=== PATIENT | female | born 1940 | race Caucasian/White ===

== ENCOUNTER 2016-06-03 05:40 | Inpatient (IN) | payer MEDICARE ==
[2016-06-03] VITALS (11 sets, daily range): BP systolic 125–164; BP diastolic 58–83; PULSE 72–106; RESP 13–20; O2SAT 89–96
[~2016-06-03] VITALS: Ht 167.6 cm; Wt 103.0 kg
[2016-06-03] MEDS: Lactated Ringer's 1,000 ML IV SCH ×3 (05:00→08:59)
[~2016-06-03 05:40] MED LIST: ACET-171 PO; ACET1TAB12 PO; Bacitracin 50,000 unit Inj IRRIGATION SCH; CHOL100045 PO; DIAZ5TAB PO; DOCU250C2 PO; FLUO60TA PO; HYDR-3740 PO; HYDR25CA PO; IBUP200C PO; LISI2.5T PO; LORA0.5T PO; LOVA40TA PO; LYSI1000 PO; MELA1TAB16 PO; METF500T4 PO; MULT-1018 PO; TRAZ-115 PO; Thrombin Powder 5,000 Unit TOPICAL SCH
[2016-06-03] MEDS ORDERED: Clindamycin Inj 600 MG in IV Premix 1 EACH IV ONE (06:00)
--- NOTE | 2016-06-03 07:18 | PCM.HPANE ---
Patient Data Date of Service: Jun 03, 2016 Surgeon Admitting Provider: Attending Provider:Darrell Strickland MD Primary Care Physician:Luh Olivares MD Other Provider:Keegan Burgos Anesthesia Reason for Visit Cervical Spondylosis With Myelopathy And Radiculop Ht/WT & BMI Height (Feet): 5 Height (Inches): 6.00 Weight (Kilograms): 103.0 Body Mass Index 36.00 Allergies Coded Allergies: Penicillins (Verified Allergy, Severe, INJECTIONS ONLY, RASH AND ITCHING, 05/29/16) Uncoded Allergies: VICODIN/PERCOCET/NARCOTICS (Adverse Reaction, Severe, ITCHING W/ LARGER DOSES, 05/29/16) Past Anesthesia History Anesthesia History: Positive for:: Difficult Intubation, Denies:: Anesthesia Reactions, Fam Anesthesia Reaction, Fam Malignant Hypertherm, Malignant Hyperthermia Diabetes History Hx Diabetes?: Yes Type of Diabetes: Type II Glycemic Control: Oral Medication Current Bedside Blood Glucose: 117 MRSA MRSA: No Medications Hypertension Medication: Yes (LISINOPRIL) Home Meds Incl Beta Ketan: No Reported Medications Cholecalciferol (Vitamin D3) (Vitamin D)1,000 Unit Capsule2,000 Unit PO DAILY # 1 BOTTLE Ref 0 05/29/16 Hydroxyzine Pamoate (Vistaril)25 Mg Rkamnps16-54 Mg PO Q4H PRN For Itching Ref 0 05/29/16 Diazepam (Valium)5 Mg Tablet5-10 Mg PO TID A 30 Days Ref 0 05/29/16 Trazodone 50 Mg Ajrqdz47-944 Mg PO HS Ref 0 05/29/16 Hydrocodone-Acetaminophen 10-325 mg 1 Each Tablet0.5-2 Tablet PO Q4H PRN For Pain Ref 0 05/29/16 Metformin 500 Mg Kdckwm679 Mg PO BID Ref 0 05/29/16 Melatonin/Pyridoxine (Melatonin 5 mg Tablet)1 Each Tablet1 Each PO QPM 05/29/16 Lysine 1,000 Mg Tablet1,000 Mg PO DAILY 05/29/16 Lovastatin 40 Mg Ukepkh49 Mg PO HS #30 TABLET Ref 0 05/29/16 Lorazepam 0.5 Mg Tablet0.5-1 Mg PO BID PRN For Anxiety Ref 0 05/29/16 Lisinopril 2.5 Mg Tablet2.5 Mg PO DAILY 30 Days Ref 0 3/9/17 Ibuprofen 200 Mg Nfwrgtj395 Mg PO QID PRN For Pain Ref 0 05/29/16 Fluoxetine 60 Mg Jpgyuk23 Mg PO DAILY Ref 0 05/29/16 Docusate Sodium 250 Mg Mfdbicq174 Mg PO BID PRN For Constipation Ref 0 05/29/16 Multivitamin (Multi Vitamin Daily)1 Each Tablet1 Each PO DAILY 30 Days Ref 0 05/29/16 Acetaminophen 500 Mg Jsjelq643-6,000 Mg PO Q6H PRN For Fever 05/29/16 Acetaminophen/Codeine 300-30mg (Tylenol/Codeine #3)1 Each Tablet1-2 Tablet PO Q4H PRN Pain Ref 0 05/29/16 Discontinued Reported Medications Lysine Hcl-Expunged Drug, Do Not Renew! (R-Oefijl-Adglvzlv Drug, Do Not Renew!) 500 Mg Lhfhlx074 Mg PO PRN 07/25/11 Mu-Vits-Min Th/Lycopene/Lutein (Centrum Silver Tablet)1 Each Tablet1 Each PO DAILY 07/25/11 Cholecalciferol (D3)-Expunged Drug, Do Not Re (Vitamin D-3-Tmyxpnof Drug, Do Not Renew!)2,000 Unit Capsule2,000 Unit PO DAILY 07/23/11 MELATONIN-Expunged Drug, Do Not Renew! 10 Mg Tab.mphase6 Mg PO HS PRN 07/23/11 IBUPROFEN-Expunged Drug, Do Not Renew! 200 Mg Szhlyj907 Mg PO Q4 INSTRUCTED TO STOP 07/23/11 Lovastatin-Expunged Drug, Do Not Renew! 40 Mg Vkwzlv17 Mg PO HS 07/23/11 Metformin-Expunged Drug, Do Not Renew! 500 Mg Bqxbfi822 Mg PO BID 07/23/11 Zolpidem-Expunged Drug, Do Not Renew! 5 Mg Tab5 Mg PO HS PRN 07/23/11 Trazodone-Expunged Drug, Do Not Renew! 50 Mg Yck00-979 Mg PO HS PRN 07/23/11 History History of ENT Problems?: Yes HEENT History: Positive for:: Difficult Intubation Denture Type: Partial- Upper Hx of Heart Problems?: Yes Cardiovascular History: Positive for:: Hypertension (HYPERLIPIDEMIA) Peripheral Vascular (VARICOSITIES) Denies:: Chest Pain Heart Murmur Thrombophlebitis Other Cardiac History: no SOB Hx of Respiratory Problem?: Yes Respiratory History: Positive for:: Cough (productive clear sputum cough x2wks ) Denies:: Use of C-PAP Machine Other Resp Pertinent History: SaO2 94-95% on RA, sometimes dips to 91% sometimes rises to 97% w/ deep inspiration; former smoker, quit 2008 Hx Neurologic Problems?: Yes Neurological History: Positive for:: Headaches Denies:: CVA Seizures Other Neurological Pertinent: BUE radiculopathy/neuropathy w/ significant weakness LUE - no paresthesias on neck rotation Hx of GI Problems?: Yes Gastrointestinal History: Denies:: Gastroesphageal Reflux Rectal Bleeding (HX COLON POLYPS) Hx of Problems?: No Female Hx: Denies:: Currently Skin History: Denies:: History Skin Disorders? Pressure Ulcers Hx Musculoskeletal Problems?: Yes Musculoskeletal History: Positive for:: Back Injury (C/OF CHRONIC BACK PAIN & SCIATICA) Degenerative Joint Joint Replacement (S/P LT DILMA,RT TKA) Musculoskeletal Trauma (S/P RT KNEE SCOPE) Osteoarthritis (C/OF CHRONIC JOINT PAIN) Hx of Psycho/Social Problems?: Yes Psycho Social History: Positive for:: Anxiety Hx Depression Hx Surgeries?: Yes (RT KNEE SCOPE,RT TKA,LT DILMA) Hx Any Other Health Problems?: Yes Other History: Denies:: Cancer Endocrine Disease Hospitalization Thyroid Disease History Blood Transfusions: Denies:: Blood Transfusions Hx Diabetes: YesBedside Blood Glucose: 117 Hx Alcohol Use: YesHx Substance Use: No Smoking Status: Former Smoker Have You Smoked inLast 12 mo: NoApprox How Many Cigarettes/day: 1 PPD Stop/Bang Treated for Sleep Apnea?: No Do You Have a CPAP Machine?: No S-Snoring: Do You Snore Loudly: No T-Tired: feel tired, fatigued: No O-Obsered: Observed not breath: No P-Blood Pressure: treated: Yes B- Body Mass Index > 35 kg/m2: Yes A- Age over 50: Yes N- Neck Large Circumference: Yes G- Gender Male: No JOSÉ Total Score: 4 JOSÉ Risk Assessment: High Risk, =/>3 Yes JOSÉ Category 2: Yes Risk Assessment Category Category 1A: Patient has history of documented sleep apnea, and HAS NOT received any narcotic, sedative or anesthesia administration during this stay. Category 1B: Patient has history of documented sleep apnea, and HAS received any narcotic , sedative or anesthesia administration during this stay Category 2: Patient has SUSPECTED Obstructive Sleep Apnea, and HAS received any narcotic , sedative or anesthesia administration during this stay. Category 3: Patient has SUSPECTED Obstructive Sleep Apnea and HAS NOT received narcotic, sedative or anesthesia administration during this stay. Category 4: Outpatient in Procedural Areas with known sleep apnea or who screen positive for High Risk via the STOP/BANG questionnaire. Exam Exam Vital Signs Vital Signs Date Time Temp Pulse Resp B/P Pulse Ox O2 Delivery O2 Flow Rate FiO2 06/03/16 06:14 35.8 72 18 125/71 96 Room Air General Appearance: Alert, Oriented X3, Cooperative, No Acute Distress HEENT/AIRWAY: MP 2 (partial upper), Neck Movement (R rot 30, L rot 60, Ext 60, Flex full - no paresthesias w/ neck movement), Mouth Opening (3), Other (tmd3) Lungs: Diminished (bibasilar), Wheezes (mild) Heart: Exam Unremarkable, Regular Rate/Rhythm, Normal S1, Normal S2, No Murmurs /Rubs/Gallops Meds/Labs/Diagnostics Admission Meds Current Medications Lactated Ringer's (Lr) 1,000 ml @ 120 mls/hr Q8H20M IV Last administered on t 05:20; Start 06/03/16 at 05:00; Stop 06/03/16 at 13:19 Bedside Blood Glucose: 117 Diagnositcs CXR 3- Mild cardiomegaly. Mild interstitial prominence suggesting fluid overload. Plan Impression Patient chart reviewed, patient interviewed and anesthestic plan with risks, benefits, and alternatives discussed, and informed consent obtained. NPO Status: 06/02 at 2100 ASA Physical Status: ASA3 Severe Disease Anesthetic Support Modalities: [place] Scope Anesthetic Plan: GA Bene/Risks/Altern/Consents: Yes HP Complete Prior to Induction: Yes Other Portable CXR ordered to evaluate pulmonary symptoms, Duonebs preop to optimize pulmonary function, risk for post-op intubation/mech ventilation addressed Luigi Gil MD Jun 03, 2016 07:18
[2016-06-03] MEDS ORDERED: Albuterol-Ipratropium 3 mL Inhalation Solution ONE (07:19)
[2016-06-03] MEDS ORDERED: Albuterol-Ipratropium 3 mL Inhalation Solution NEB ONE (07:20)
--- NOTE | 2016-06-03 08:21 | DRSVH ---
PROCEDURE: X-RAY CHEST ONE VIEW, PORTABLE ([id number]) INDICATIONS: productive cough, desaturation, r/o pneumonia TECHNIQUE: One view of the chest was acquired. COMPARISON: [facility], , CHEST 2VW, 07/30/2011, 9:56. FINDINGS: Surgical changes and devices: None. Lungs and pleura: No pleural effusions or pneumothorax. There is mild, diffuse interstitial prominen ce. Mediastinum: Mediastinal contours appear normal. Heart size is mildly enlarged. Bones and chest wall: No suspicious bony lesions. Overlying soft tissues appear unremarkable. IMPRESSION: Mild cardiomegaly. Mild interstitial prominence suggesting fluid overload. Dictated by: Lori Hidalgo M.D. on 06/03/2016 at 8:19 Approved by: Lori Hidalgo M.D. on 06/03/2016 at 8:19
[2016-06-03] MEDS ORDERED: Bupivacaine-MPF 0.5% 30 mL Inj INFILTRATE ONE (08:57)
[2016-06-03] MEDS ORDERED: Bacitracin 50,000 unit Inj IRRIGATION ONE (08:58)
[2016-06-03] MEDS ORDERED: Thrombin Powder 5,000 Unit TOPICAL ONE (08:58)
--- NOTE | 2016-06-03 09:19 | DRSVH ---
PROCEDURE: X-RAY CERVICAL SPINE, 1 VIEW INDICATIONS: CERVICAL SPONDYLOSIS WITH MYELOPATHY AND RADICULOP TECHNIQUE: Single lateral view of the cervical spine acquired. COMPARISON: None. FINDINGS: Bones: Radiopaque surgical probe present projected over the anterior disc interspace at the C3-C4 lev el. Soft tissues: Suboptimally visualized. IMPRESSION: Localization of the anterior disc interspace at the C3-C4 level for operative planning. Dictated by: Gregorio CLIFTON Interpreted: Micheline Rodriguez MD on 06/03/2016 at 9:18 Transcribed by: VERO on 06/03/2016 at 9:19 Approved by: Micheline Rodriguez M.D. on 06/03/2016 at 16:34
[2016-06-03] MEDS ORDERED: Lactated Ringer's 1,000 ML IV SCH ×2 (09:45→14:54)
[2016-06-03] MEDS ORDERED: fentaNYL-PF 50 mCg/mL 2 mL Inj IVPUSH PRN (09:45)
[2016-06-03] MEDS ORDERED: HYDROmorphone 1 mg/mL Inj IVPUSH PRN ×2 (09:45→14:55)
[2016-06-03] MEDS ORDERED: Lactated Ringer's 500 ML IV PRN (09:45)
[2016-06-03] MEDS ORDERED: Dexamethasone 4 mg/mL Inj IVPUSH PRN (09:45)
[2016-06-03] MEDS ORDERED: Ondansetron 2 mg/mL 2 mL Inj IVPUSH PRN ×2 (09:45→14:55)
[2016-06-03] MEDS ORDERED: Phenylephrine 10,000 mCg/mL Inj IVPUSH PRN (09:45)
[2016-06-03] MEDS ORDERED: EPHEDrine Sulfate 50 mg/mL Inj IVPUSH PRN (09:45)
[2016-06-03] MEDS ORDERED: MetoCLOpramide 5 mg/mL 2 mL Inj IVPUSH PRN (09:45)
--- NOTE | 2016-06-03 13:49 | OP ---
[address] [address] OPERATIVE REPORT PATIENT: ANDRES MEJIA : 1940 MR#: [id number] ADMIT: 06/03/2016 JOB ID: [id number] DATE OF SURGERY: 06/03/2016 PREOPERATIVE DIAGNOSIS(ES): Cervical spondylosis with myelopathy and radiculopathy. POSTOPERATIVE DIAGNOSIS(ES): Cervical spondylosis with myelopathy and radiculopathy. PROCEDURE: C3-7 anterior cervical diskectomy and fusion using allograft bone and anterior plating C3- C7. SURGEON: Darrell Strickland MD PIPELINE WELDER: RONNA Soares ANESTHESIA: General with Dr. Luigi Gil. ESTIMATED BLOOD LOSS: 50 cc. DATE OF SURGERY: SURGEON: PREOPERATIVE DIAGNOSIS(ES): POSTOPERATIVE DIAGNOSIS(ES): DRAINS: One BERNA. COMPLICATIONS: None. COMPLICATIONS: None. INDICATIONS: This patient presented with symptoms and findings of cervical myelopathy and radiculopathy. She had severe spondylosis, canal stenosis with cord compression at four levels from C3-C7 and neural foraminal narrowing bilaterally, more pronounced on the left side with a left radiculopathy involving the C5-C6 and C7 roots. DESCRIPTION OF PROCEDURE: This patient was taken to the operating room on May 19, 2016, placed under general anesthesia, prepped and draped sterile. The right side of the neck was infiltrated with 0.5% plain Marcaine and an incision was made transversely on the right side of the neck from the midline to the sternocleidomastoid. The incision was carried down sharply through the skin and subcutaneous tissues and hemostasis was achieved with the bipolar electrocautery. The platysma was incised and blunt dissection was used to create a plane to the prevertebral space. The carotid was palpated and mobilized laterally. The esophagus and trachea were mobilized medially with an appendectomy retractor. A Sedona pin was placed into the vertebral body of C3 as a marker along with a bent spinal needle at the C3-4 level. The position of the Sedona pin was confirmed with an intraoperative lateral C-spine film. The deep retractors were initially placed at the C3-4 level and distracted open. Sedona pins were placed into the vertebral bodies of C3 and C4. The patient had a diskectomy and fusion first performed at C3-4, then C4-5, then C5-6, then C6-7. At each level it was necessary to reposition the retractors and to reposition the Sedona pins and the microscope. Each level was done in the same manner. First the annulus was incised with the monopolar. Then, the disk material was removed piecemeal with curette. Then, the high-speed bur was used to remove the anterior and posterior osteophytes and widen the disk space with a high-speed bur. The posterior longitudinal ligament was resected to decompress the central canal using the curette and Kerrison punch. The neural foramen were widened bilaterally to decompress the nerve roots bilaterally at each level. Following the foraminotomies and the decompression of central canal, the disk space was prepared for the fusion using the rasp. The rasping at the C3-4 level required the placement of a 9 mm donor bone graft that tapered to 7 mm. Similarly a 9 x 7 donor bone graft was placed at the C6-7 level. The two middle levels C4-5 and C5-6 used an 8 mm allograft that tapered to 6 mm. Before the placement of the bone graft, the disk space was irrigated with an antibiotic solution and inspected for hemostasis. Hemostasis was achieved with the use of Gelfoam and the Gelfoam was removed. Following the placement of the bone graft at each level, the bone graft was held firmly in position. A plate was then selected to span C3-C7. A Shea plate, a product of [employer], measuring 68 mm was selected. This is a dynamic titanium plate spanning C3-C7 anteriorly. The plate was secured to the vertebral bodies of C3-C4-C5-C6 and C7 with fixed angle self-drilling 12 mm titanium screws. The screws were all locked into position. The spacing bars were all removed from the Shea plate at each disk level. The wound was then irrigated with antibiotic solution. Hemostasis was achieved with the bipolar electrocautery. A BERNA drain was placed at the base of the wound, brought out through a separate stab wound, and hooked up to bulb suction. The platysma was then approximated with interrupted sutures of 0 Vicryl and the skin was closed with 4-0 Vicryl using a subcuticular stitch. Steri-Strips were applied the skin which was dressed with Telfa, gauze and tape and the patient was placed in a hard cervical collar.
[2016-06-03] MEDS ORDERED: Promethazine 12.5 mg/50 mL-NS 12.5 MG in IV Premix 1 EACH IV PRN (14:40)
[2016-06-03] MEDS ORDERED: HYDROcodone-APAP 10-325 mg PO PRN (14:45)
[2016-06-03] MEDS ORDERED: Benzocaine (Hurricaine) 20% Unit-Dose Spray MUC_MEMBRM PRN (14:50)
[2016-06-03] MEDS ORDERED: Glucose 40% Oral Gel 15 Gm Tube PO PRN (14:50)
[2016-06-03] MEDS ORDERED: Codeine-APAP 30-300 mg Tablet PO PRN (14:50)
[2016-06-03] MEDS ORDERED: hydrOXYzine Pamoate 25 mg Capsule PO PRN (14:55)
[2016-06-03] MEDS ORDERED: Polyethylene Glycol (PEG) 17 Gm Powder PO PRN ×3 (14:55)
[2016-06-03] MEDS ORDERED: Magnesium Hydroxide 10 mL Oral Concentration PO PRN ×3 (14:55)
[2016-06-03] MEDS ORDERED: Sodium Biphos-Phos 133 mL Enema RECTAL PRN ×3 (14:55)
[2016-06-03] MEDS ORDERED: Senna-Docusate 8.6-50 mg Tablet PO PRN ×3 (14:55)
[2016-06-03] MEDS ORDERED: Benzocaine-Menthol Lozenge 2/Pkg PO PRN (14:55)
[2016-06-03] MEDS ORDERED: EPHEDrine/NS 5 mg/mL 5 mL Syringe ONE (14:57)
[2016-06-03] MEDS ORDERED: HYDROmorphone 2 mg/mL Inj ONE (14:57)
[2016-06-03] MEDS ORDERED: Rocuronium 10 mg/mL 5 mL Inj ONE ×2 (14:57)
[2016-06-03] MEDS ORDERED: Dexamethasone 4 mg/mL Inj ONE ×2 (14:57)
[2016-06-03] MEDS ORDERED: MetoCLOpramide 5 mg/mL 2 mL Inj ONE (14:57)
[2016-06-03] MEDS ORDERED: Lidocaine PF 1% 30 mL Inj ONE (14:57)
[2016-06-03] MEDS ORDERED: Propofol 10,000 mCg/mL 20 mL Inj ONE ×2 (14:57)
[2016-06-03] MEDS ORDERED: Ondansetron 2 mg/mL 2 mL Inj ONE (14:57)
[2016-06-03] MEDS ORDERED: Succinylcholine Chloride 20 mg/mL 5 mL Inj ONE ×2 (14:57)
[2016-06-03] MEDS ORDERED: fentaNYL-PF 50 mCg/mL 2 mL Inj ONE (14:57)
[2016-06-03] MEDS ORDERED: Clindamycin Inj 900 MG in IV Premix 1 EACH IV SCH (16:00)
--- NOTE | 2016-06-03 16:21 | NUR ---
Evaluation completed. Please go to "Notes" then click on "Assessments and Notes" (bottom left corner of screen). Then select appropriate discipline tab on top of screen.
--- NOTE | 2016-06-03 16:27 | PCM.ANEP1 ---
Post Anesthesia Phase 1 PACU Phase 1 Assessment Date of Service: Jun 03, 2016 Vital Signs Vital Signs Date Time Temp Pulse Resp B/P Pulse Ox O2 Delivery O2 Flow Rate FiO2 06/03/16 14:40 97 18 159/64 94 Nasal Cannula 3 06/03/16 14:22 37.6 103 18 149/66 93 Nasal Cannula 4 06/03/16 14:19 105 13 151/58 92 Nasal Cannula 4 06/03/16 14:10 106 15 158/58 89 Room Air 06/03/16 14:07 104 15 162/66 96 Simple Mask 10 06/03/16 14:00 104 17 161/64 96 Simple Mask 10 06/03/16 13:55 105 17 164/70 96 Simple Mask 10 06/03/16 13:46 37.9 104 17 162/60 95 Simple Mask 10 Anesthetic Administered: GA Level of Alertness: Awake, talking KASPER's with Equal Strength: Yes (baseline) Pain: No Pain Scale Score: 0 Nausea or Vomiting: No Oxygen Delivery: Simple Mask Lungs: Diminished (bibasilar), Wheezes (mild) Summary Hard collar applied by surgical PA in OR prior to extubation. In place for transport to PACU. Luigi Gil MD Jun 03, 2016 16:27
--- NOTE | 2016-06-03 16:29 | PCM.ANEP2 ---
Post Anesthesia Evaluation ASA/CMS Post Anesthesia VS in Patient's Normal Range?: Yes Resp Stable; Airway Patent?: Yes CV Function & Hydration Stable: Yes Mental Status Recovered?: Yes Pain control Satisfactory?: Yes N/V Control Satisfactory?: Yes Luigi Gil MD Jun 03, 2016 16:29
[2016-06-03] MEDS: Insulin LISPRO 300 Unit/3 mL Inj SUBQ SCH ×2 (17:30→21:07)
[2016-06-03] MEDS: Clindamycin Inj 900 MG in IV Premix 1 EACH IV SCH ×2 (18:17→23:35)
--- NOTE | 2016-06-03 19:07 | NUR ---
Post Op Patient received to room 1031 s/p cervical disectomy with fusion. Patient with hard collar on, frances drain and anterior dressing cdi. patient with equal delivery stock clerk but still slightly weak, + radial pulse noted. Patients right thumb is numb. Patient up with physical therapy and now currently sitting in chair. Patient instructed to call for help when ready to go back to bed and agreed she would. Patient has denied pain since arrival to floor.
[2016-06-03] MEDS ORDERED: Senna-Docusate 8.6-50 mg Tablet PO SCH ×2 (20:30)
[2016-06-03] MEDS ORDERED: LOVASTATIN 80 MG PO SCH (21:00)
[2016-06-03] MEDS: Senna-Docusate 8.6-50 mg Tablet PO SCH (21:05)
[2016-06-04 00:04] VITALS: BP 113/66; PULSE 82; RESP 16; O2SAT 94
[2016-06-04 02:51] VITALS: BP 123/64; PULSE 90; RESP 18; O2SAT 92
--- NOTE | 2016-06-04 03:08 | NUR ---
Transfer of Care Report given from KATHARINE Shirley at approximately 0100. VSS. Patient denies any pain. Patient does state that she has right sided numbness on her thumb, first, and second fingers that was not there before the surgery. Patient ambulated to the BR with no stated dizziness. She requested to sit in the chair instead of going back to bed. Patient requested jello. No stated n/v. Neuro check completed. Call light within reach. Care continues.
[2016-06-04] MEDS: Insulin LISPRO 300 Unit/3 mL Inj SUBQ SCH (08:00)
[2016-06-04] MEDS: HYDROcodone-APAP 5-325 mg Tablet PO PRN ×2 (08:15→13:00)
[2016-06-04] MEDS: Senna-Docusate 8.6-50 mg Tablet PO SCH (08:16)
[2016-06-04 10:32] VITALS: BP 126/70; PULSE 82; RESP 16; O2SAT 97
--- NOTE | 2016-06-04 11:24 | DRSVH ---
PROCEDURE: X-RAY CERVICAL SPINE, 1 VIEW INDICATIONS: S/P C3-7 ACDF TECHNIQUE: Single lateral view of the cervical spine acquired. COMPARISON: [facility], , XR CERVICAL SPINE 1VW, 06/03/2016, 8:30. FINDINGS: Bones: Multilevel ACDF from the C3 to the C7 level with hardware and bone grafts in expected position . Soft tissues: Surgical drain present. IMPRESSION: Multilevel ACDF Dictated by: Gregorio Marcum RRA Interpreted: Linnea Chin MD on 06/04/2016 at 11:23 Transcribed by: MOON on 06/04/2016 at 11:23 Approved by: Linnea Chin MD, PhD on 06/04/2016 at 17:03
--- NOTE | 2016-06-04 11:45 | NUR ---
Evaluation completed. Please go to "Notes" then click on "Assessments and Notes" (bottom left corner of screen). Then select appropriate discipline tab on top of screen.
--- NOTE | 2016-06-04 12:53 | PCM.DISURG ---
Surgical Discharge Instruction Date of Service Jun 04, 2016 Dates of Hospitalization Date of Hospital Admission Jun 03, 2016 at 14:56 Providers Admitting Physician: Darrell Strickland MD Primary Care Physician: Luh Olivares MD Attending Physician: Darrell Strickland MD Discharge Diagnosis Discharge Diagnosis Status post C3-7 anterior cervical discectomy and fusion with allograft bone 4 , & anterior cervical plating from C3-7 Post Operative diagnosis Status post C3-7 anterior cervical discectomy and fusion, with allograft bone 4 , & anterior cervical plating from C3-7 Additional Instructions Discharge Instructions Anterior Cervical Discectomy and Fusion What is my recovery like? The hospital stay is usually overnight. After the surgery, you might have a sore throat. This is very common due to the retraction (moving) of the esophagus and trachea. The sore throat usually resolves in 1-2 weeks. Drinking lots of fluids will help improve the symptoms. The cervical collar should be worn at night and for comfort only during the day. On your postoperative follow- up appointments, your Doctor will perform X-rays to see how well everything is healing. What are my restrictions? You should not lift anything heavier than five pounds. Avoid excessive movements of your neck until instructed specifically by your Doctor. Can I Shower? You may shower when you go home. You must remove the outside dressing on the 7th day after surgery, or change dressing as needed if soiled or saturated ( replacing new sterile gauze & water proof dressing) otherwise leave alone. The small pieces of tape (steri-strips) directly on top of the incision may get wet. The steri-strips will fall off on their own. Can I drive? No, you should not drive until specifically given permission from your Doctor in a follow up appointment. Most Patient's can drive in 2-3 weeks if they are not taking narcotic pain medications or muscle relaxers. You may ride in a car, but should avoid trips longer than two hours in duration. When can I return work / sports? Your Doctor will discuss your return to work with you on your first postoperative follow-up appointment. Most patients may return to work within 2 weeks for sedentary jobs. More physically demanding jobs may require 3-6 months of healing before such work can be considered. When should I call the doctor? You should call your Doctor or go to the Emergency Department if you develop chest pain, shortness of breath, a temperature greater than 101.5 F, severe uncontrolled pain or weakness, loss of bowel or bladder function, choking, swelling, lots or drainage, pus discharge or constipation. Instructions Regarding Comfort & Pain Medication Use: During the recovery period , even with the use of pain medication, you may experience pain at the site of surgery. You may also have the same type of pain you had before surgery. Please use your pain scale as a guide for taking your pain medication. When your pain is greater than 4 out of 10, or when your pain reaches your personal tolerable level of pain, take your pain medication as prescribed. Use your pain medication on an 'as needed' basis. This means if your pain level is within your tolerable level of pain you DO NOT need to take the medication. As you get better, you will notice you can increase the time interval between doses and decrease the number of tablets you are taking, gradually taking less and less pain medication. Taking pain medication when it is not necessary (for example when your pain is tolerable or acceptable) can result in dangerous side effects and over- sedation. Signs and symptoms of over-sedation include: drowsiness, excessive sleeping, slow or difficult breathing, slurred speech, impaired thinking, confusion, impaired motor coordination. If you have any of these symptoms stop taking the medication and immediately contact your doctor. IF SYMPTOMS ARE LIFE THREATENING CALL 911. To decrease pain and swelling, frequently apply an ice pack for 20 min intervals with at least one hour off. When to take Acetaminophen for pain? If you don't have liver problems, allergies and/or Tylenol is not in your current pain medication. Take Extra Strength Tylenol 500mg 2 tabs by mouth every 6 hours as needed for pain. DO NOT EXCEED 8 TABS PER DAY. Follow Up Plan Follow Up Plan Follow-up with physician cashier assistant in outpatient neurosurgical clinic in 1 week for wound check. Follow-up Provider (F9): Andrei Garcia PA-C Additional Information Attending Statement All documentation reviewed & orders authorized by Dr. Darrell Strickland M.D. Andrei Garcia PA-C Jun 04, 2016 12:53
--- NOTE | 2016-06-04 13:02 | PCM.DC.SUR ---
Discharge Summary Date of Service: Jun 04, 2016 Date of Hospital Admission: Jun 03, 2016 at 14:56 Date of Operation(s): 06/03/2016 Date of Discharge: 06/04/2016 Diagnosis at Time of Discharge Status post C3-7 anterior cervical discectomy and fusion, with allograft bone 4 , & anterior cervical plating from C3-7 Problems: Operation C3-7 anterior cervical discectomy and fusion, with allograft bone 4, & anterior cervical plating from C3-7 Brief History and Physical: Patient: Diandra Xie Date of : 1940 Visit Type: Pre Op Visit Date: 05/19/2016 10:45 AM Historian: self This 76 year old female presents for Preop C3-7 ACDF, Allograft and & Plating. History of Present Illness: 1. Preop C3-7 ACDF, Allograft, & Plating Diandra Xie is a 76 year old female referred by Primary Care Provider ( PCP) Dr. Luh Olivares M.D. who presents today's date 05/19/2016 for a preoperative type of appointment concerning the decision for surgery involving C3-4, C4-5, C5-6, & C6-7 anterior cervical discectomy and fusion, with allograft bone 4, & anterior cervical plating from C3-7 secondary to a diagnosis of cervical spondylosis with myelopathy & radiculopathy with related complaints of severe, intractable, and debilitating referred neck spasm to the lower back & posterior thighs with radiating pain to the bilateral shoulders & left upper extremity with paresthesias, numbness, dysesthesias, weakness including both hands &'s difficulty with coordination & imbalance. Incidentally the patient also has mild bilateral carpal tunnel syndrome. This patient was last seen by Dr. Darrell Strickland M.D. on 03/27/2016 & found to have cervical spondylosis with myelopathy and radiculopathy. Consequently she was a candidate for surgery a C5-C7 ACDF. The patient canceled surgery because of concerns and anxiety she had about the risks of surgery . She has had a progression of her symptoms of cervical myelopathy and left arm radiculopathy and would like to be reevaluated for surgical intervention. The patient reported that she first developed developed left arm radicular pain and symptoms of cervical myelopathy in February of 2014. She's had a gradual progression of the symptoms. The patient has minimal local neck pain at rest. Head movement, cervical extension can cause severe local neck pain and shooting pain into the left arm to the wrist in a C6 distribution. She reports episodes of diffuse numbness and paresthesias in her left arm and a feeling of diffuse ache and heaviness in the left arm. She also reports a feeling of shakiness or jitteriness in her left arm and hand. These symptoms of myelopathy started in February of 2014 and have progressed gradually. She also reports dropping things from her left hand but has not noticed any impairment of coordination or balance. This patient has limited abduction at the shoulders bilaterally associated with local shoulder pain. Arm movement does not reproduce the left arm C6 radicular pain. An MRI of the cervical spine shows spondylosis with mild anterior cord compression at C5-6 and C6-7. She also has neuroforaminal narrowing bilaterally at C5-6 and C6-7 that is more pronounced on the left side. She also has neuroforaminal narrowing there appears significant on the left side at C4-5. When this patient was previously seen she did not have symptoms of the left C5 distribution. She is now developing weakness of left shoulder abduction and developing radiating pains into the left deltoid region with cervical extension. Over the past year the patient reports that her symptoms of neck pain, radiating pain into the left bicep, diffuse shoulder and arm pain, and has been developing weakness of left shoulder abduction. She admits to loss of coordination, lumbar spasm & impairment of balance. A cervical MRI scan was obtained 02/02/2016 showing a progression of spondylosis at C3-4 C4-5 with severe canal stenosis and evidence of cord compression at both levels. The patient also had severe canal stenosis with more pronounced cord compression at C5-6 and C6-7. She was noted to have a severe degree of neural foraminal narrowing on the left side at C4-5 C5-C6 and C6-7. EMGs/NCV's were obtained showing evidence of cervical radiculopathy involving the left C5- C6 and C7 roots and mild bilateral carpal tunnel syndrome. The recommendations for surgery revised and the plan is to proceed with a C3-7 ACDF with allograft bone and anterior plating C3-C7. The patient is now ready to proceed with surgical intervention and would like to schedule surgery promptly. According to Dr. Darrell Strickland M.D. on reevaluation the patient has a obvious progression of her symptomatic cervical spinal spondylosis with myeloradiculopathy involving significant cervical spinal cord compression at 4 levels C3-7. She also has neuroforaminal narrowing most pronounced on the left side at C4-7. EMG studies correlate with these findings. Consequently neurosurgical cervical decompression, arthrodesis, & instrumented stabilization again recommended as treatment. The patient & Dr. Strickland discussed all the risks and benefits associated with the procedure in detail as well as reasonable expectations with respect to surgical outcomes & patient agreed to proceed with surgery as planned. The patient denies related acute loss of control of bowel or bladder function, saddle paresthesia or anesthesia. The patient has a reported pertinent past medical, surgical, family & social history for Ross DILMA, right TKA, obesity, nbq-jbzkvlb-jgoawjuhy diabetes, ( reported controlled), osteoarthritis, chronic joint pain, depression, anxiety with no other than above known positive history &/or review of all other organ systems. The patient's related complaints have been a serious detriment to their happiness and activities of daily living. Having failed conservative treatment the patient presents today for their decision for surgery appointment involving C3-4, C4-5, C5-6, & C6 7 7 anterior cervical discectomy and fusion, with allograft bone 4, & anterior cervical plating from C3-7 for treatment of cervical spondylosis with myelopathy & radiculopathy; related to severe, intractable, and debilitating referred neck spasm to the lower back & posterior thighs with radiating pain to the bilateral shoulders & left upper extremity with paresthesias, numbness, dysesthesias, weakness including both hands &'s difficulty with coordination & imbalance. The procedure is scheduled to be performed by Dr. Darrell Strickland M.D. on 06/03/2016. PERIOPERATIVE NOTE: The patient reports significant narcotic analgesic related pruritus & in conjunction with her age we will consequently recommend a lower dose narcotic analgesics & antipyretic medication with a standard protocol muscle relaxant & clear instructions which the patient indicated understanding including but not limited to the risks, how to avoid, respond to, & recognize oversedation with regards to respiratory dysfunction & falls. Problem List: Problem Description Obesity Anxiety State, NOS Other and unspecified hyperlipidemia Sciatica Elevated blood pressure Diabetes mellitus without mention of complication, Allergies: Ingredient Reaction Medication Name Comment PENICILLIN G Rash Injected PCN, Able to take Oral PCN. ACETAMINOPHEN Itching Vicodin ACETAMINOPHEN Itching Percocet Reviewed, no changes. Review of Systems System Neg/Pos Details MS Positive Back pain, Muscle weakness, Neck stiffness. GI Negative Abdominal pain, constipation, diarrhea, nausea and vomiting. MS Negative Bone/joint symptoms. Neuro Negative Dizziness, headache and seizures. Negative Dysuria, urge incontinence and urinary incontinence. ENMT Negative Hearing loss. Endocrine Negative Weight gain and weight loss. Respiratory Negative Dyspnea, apnea and wheezing. Psych Negative Anxiety and depression. Integumentary Negative Mrsa and rash. Cardio Negative Chest pain, irregular heartbeat/palpitations, leg swelling and pacemaker. Constitutional Negative Chills and fever. Eyes Negative Double vision and vision loss. Roberto Carlos/Lymph Negative Blood clots. Vital Signs Height Time ft in cm Last Measured Height Position % 10:30 AM 5.0 6.00 167.64 12/31/2015 Weight/BSA/BMI Time lb oz kg Context % BMI kg/m2 BSA m2 10:30 AM 227.40 103.147 dressed with shoes 36.70 Blood Pressure Time BP mm/Hg Position Side Site Method Cuff Size 10:30 AM 124/72 sitting left arm automatic adult large Temperature/Pulse/Respiration Time Temp F Temp C Temp Site Pulse/min Pattern Resp/ min 10:30 AM 97.3 36.3 temporal regular Measured By Time Measured by 10:30 AM Jeri Early MA Physical Exam Exam Findings Details Comments WD/WN, obese female who is AO x 3, cooperative,& appears to be in NAD w/ language & speech that is intact & fluent. There is no evidence of recent or remote memory impairment. The patient's knowledge is appropriate for age & level of education w/ a pleasant affect & euthymic mood. Ambulates w/ no difficulty. NC/AT, PERRL, EOMI, w/o facial droop, hearing grossly intact, nostrils patent, oral cavity and pharynx normal. Neck supple, w/o LAD or thyromegaly. Heart: RRR w/o audible murmurs Lungs: CTAB Abdomen: NT/ND Decreased ROM of C-Spine Left shoulder pain with passive ROM Neg Spurlings, subtle + Hoffmans on the left side, Neg Lhermittes Neg Tinnels, Neg Phalens, no tenderness over cubital tunnel Motor Strength: 4/5 left shoulder abduction & other motor groups 5/5 in UEs & LEs Diminished sensation over the left deltoid that is dense Diminished sensation in a left C6 distribution in the bicep & forearm DTRs, absent left brachial radialis & bicep, 2+ all RUE & no clonus. Assessment/Plan # Detail Type Description 1. Assessment Cervical spondylosis with myelopathy and radiculopathy (M47.12). 2. Assessment Preoperative examination (Z01.818). Patient Plan We including your Attending Surgeon have discussed the risks and benefits associated your scheduled procedure which you have verbally acknowledged understanding including but not limited to the possibility of an outcome that we are unable to predict or was not mentioned. 1. You are scheduled for a C3-4, C4-5, C5-6 & C6 7 7 anterior cervical discectomy and fusion, with allograft bone 4, & anterior cervical plating from C3-[address] Darrell Strickland M.D. at [facility] on 06/03/2016. 2. Check in time is []. Also please ignore instructions below if told otherwise by your preadmission nurse or if you do not take the medications listed below. 3. Nothing to eat after midnight the night before surgery. You may take all of your "approved" medications with small sips of water. Remember to take your a.m. hypertension medication if it is a beta veronica and ends in "olol. Otherwise ask your doctor if you need to hold your a.m. hypertension medication. 4. No aspirin, ibuprofen, Naprosyn, or other NSAIDs starting 7 days prior to surgery. 5. Please stop Warfarin/Coumadin or other blood thinners such as Plavix, Aggrenox, or Xarelto 7 days prior to your surgical procedure and follow specific instructions from your prescribing provider. 6. Please stop Lovenox bridging in the morning one day prior to procedure. 7. Please stop Suboxone/Buprenorphine at least 4 days prior to procedure. 8. Go to the hospital today to get her preoperative testing done. Take the order form to the surgery desk on the second floor of the hospital, [facility] (main entrance next to the emergency entrance). I will notify you if there is any test results that require further workup prior to surgery. 9. Follow the instructions you were given today, use the cleansing cloths the night before as well as the morning of her surgery. 10. If you are prescribed inhalers, CPAP or BiPAP machines you use at home bring along with you to the hospital. 11. ONLY If you take medications for Diabetes: If you have an insulin pump continue lowest (typically night-time) basal rate into the a.m. If you do not have a pump check h your a.m. blood sugar and hold insulin if BS less than 100. If you are taking long-acting, intermediate acting (NPH) or 70/30 preparation : Take half on day of procedure. If you are taking ultra long-acting insulin such as glargine, Lantus either at night or in the a.m. continue as scheduled ( including day of surgery). If you take short acting regular insulin (insulin not delivered via pump) discontinue on day of procedure. 12. Please call if you have any questions before your surgery: [phone]. Today's instructions/counseling include(s) Pre-operative instructions given to the patient and or legal medical office representative(s) orally and in writing. 13. Our office will contact you if there are any test results that require further workup prior to surgery. Provider Plan The patient's history and examination as well as radiological findings were reviewed with Dr. Darrell Strickland M.D. and conveyed the patient in detail. The findings are consistent with cervical spondylosis with myeloradiculopathy and are most likely the cause of the patient's severe, intractable, and debilitating referred neck spasm to the lower back & posterior thighs with radiating pain to the bilateral shoulders & left upper extremity with paresthesias, numbness, dysesthesias, weakness including both hands &'s difficulty with coordination & imbalance. The patient has failed extensive conservative treatment for this condition. The treatment options were discussed with the patient. The options include attempt to live with the condition, reattempt conservative treatment, try a pain management intervention / injection or consider a surgical intervention. We are not extremely optimistic that further conservative treatment, pain management intervention and/or injection will adequately resolve the patient's symptoms of severe, intractable, and debilitating referred neck spasm to the lower back & posterior thighs with radiating pain to the bilateral shoulders & left upper extremity with paresthesias, numbness, dysesthesias, weakness including both hands &'s difficulty with coordination & imbalance. Therefore we recommend C3-4, C4-5, C5-6 & C6 7 7 anterior cervical discectomy and fusion, with allograft bone 4, & anterior cervical plating from C3-7. The patient was provided/offered educational materials pertaining to their diagnosis and the above discussed procedure. We discussed the risks and benefits associated with this surgery. A spine model was used to explain the nature of this type of surgery. The risk of the required anesthesia was also mentioned including but not limited to organ failure such as heart attack, pneumonia and stroke even . The risk of this type of surgery was also mentioned. Including but not limited to an unsuccessful outcome, residual symptoms, odynophagia, dysphasia or sore throat, referred or radiating posterior spinal myofascial inflammatory pain or spasm, post operative instability, instrumentation failure, sensory changes, blood loss, blood clots, wound infection, spinal cord or nerve damage, CSF or lymph leak, damage to neighboring structures such as the recurrent laryngeal nerve, perforation of the esophagus or trachea, pseudoarthrosis, adjacent level disease , contraindication to MRI, Rebecca's Syndrome, vision loss, voice change, resulting in temporary or permanent dysfunction, even disability, paralysis, and . The recovery of this type of surgery was also mentioned. The chances for improvement of the cervical radiculopathy related symptomatology in the shoulders or upper extremities at one year is 70-80%. The chances of improvement of mechanical local neck pain is 50%. This includes but is not limited to reasonable expectations for the treatment of myelopathy involving the surgical decompression of the cervical spinal cord; which will stop the progression of the patient's condition but cannot guarantee improvements in any associated physical complaints. The patient verbalized understanding all the risks and benefits, knowing that it is impossible to predict or guarantee every surgical outcome; and would like to proceed with the above discussed procedure anyways. Surgery is scheduled for 06/03/2016. The standard [facility] preoperative screening tests, medicine restrictions, and logistical protocols apply. Any preoperative testing is within normal limits to undergo the above discussed procedure unless otherwise noted in the medical record. PERIOPERATIVE NOTE: The patient reports significant narcotic analgesic related pruritus & in conjunction with her age we will consequently recommend a lower dose narcotic analgesics & antipyretic medication with a standard protocol muscle relaxant & clear instructions which the patient indicated understanding including but not limited to the risks, how to avoid, respond to, & recognize oversedation with regards to respiratory dysfunction & falls. Medications (added, continued or stopped this visit): Start Date Medication Directions Stop Date 12/12/2015 acetaminophen 300 mg-codeine 30 mg tablet take 1 tablet by ORAL route every 4 hours as needed for cough or pain 10/19/2015 acetaminophen 500 mg tablet take 1 - 2 tablet by oral route every 6 hours as needed not to exceed 6 tablets per day 05/04/2015 DAILY VITAMIN Take Oral Once Daily 05/19/2016 docusate sodium 250 mg capsule take 1 capsule by oral route 2 times every day 02/15/2016 fluoxetine 20 mg capsule take 3 capsule by oral route every day in the morning 12/05/2010 ibuprofen 200 mg Tab take 1 tablet (200MG) by oral route every 6 hours as needed with food 02/15/2016 lisinopril 2.5 mg tablet take 1 tablet by oral route every evening 05/04/2015 lorazepam 0.5 mg tablet take 1/2 to 1 tablet (1MG) by ORAL route up to twice daily as needed for extreme anxiety 07/17/2016 02/15/2016 lovastatin 40 mg tablet TAKE 2 TABLETS BY MOUTH DAILY WITH THE EVENING MEAL lysine 01/24/2009 melatonin 5 mg Tab take 1 tablet every night 02/15/2016 metformin 500 mg tablet TAKE 1 TABLET BY MOUTH 2 TIMES EVERY DAY WITH MORNING AND EVENINGMEALS 06/02/2016 [place] 10 mg-325 mg tablet take 0.5-2 tablet(s) by oral route every 4 - 6 hours as needed for pain DO NOT TAKE WITH CODEINE. 06/24/2015 trazodone 50 mg tablet 1 to 3 tablets at night as needed for difficulty sleeping 06/02/2016 Tylenol-Codeine #3 300 mg-30 mg tablet take 1-2 tablet(s) by oral route every 4-6 hours as needed for pain DO NOT TAKE WITH HYDROCODONE 06/02/2016 Valium 5 mg tablet take 1 - 2 Tablet by oral route every 8 hours spasm 06/02/2016 Vistaril 25 mg capsule take 1-2 capsule by oral route 6 times every day as needed for itching 05/04/2015 Vitamin D3 2,000 unit tablet 1 tablet daily Counseling/Educational Factors: Counseling / educational factors reviewed. Counseling / educational factors reviewed. This is a visit of 60 minutes. 50 minutes were spent counseling. This document may have been created using voice recognition software or other electronic means and may contain inadvertent bias binding folder errors. Provider: Andrei GREWAL 05/19/2016 01:46 PM Document generated by: Andrei Garcia 05/19/2016 01:46 PM CC Providers: Luh Olivares [address] [place] [address]- Luh Olivares [address] [place] [address]- [address] , [place] [address] w clarence vivas c l i n i c s . o r g Hospital Course: Hospital Course: The patient was admitted through same day surgery and subsequently underwent a C3-7 anterior cervical discectomy and fusion, with allograft bone 4, & anterior cervical plating from C3-7. The patient tolerated the procedure well. The patient was then was transferred to PACU and then to the [facility] floor. The patient was admitted for postoperative pain control, PT/OT, supervised for co- morbidities with inpatient nurse monitoring, continuous pulse oximetry, and discharge planning. The Patient's overnight course within normal limits. Currently the patient has complaints of only minimal surgical site pain & discomfort with mild hoarse voice. The patient also had new onset mild numbness and right thumb & index finger. There is significant improvement of the patient's residual myeloradiculopathy symptoms. The patient denies headache, severe sore throat or dysphagia, chest pain, shortness of breath, abdominal pain, nausea, vomiting, constipation, diarrhea, or any new onset &/or location of pain, weakness or paresthesias aside from the surgical site. PHYSICAL EXAM This is a well developed, well nourished, obese elderly female who is alert, cooperative, and appears to be in no acute distress with a pleasant affect & euthymic mood. Exam of the head is normocephalic. PERRL, EOMI, without facial droop, hearing grossly intact, nostrils patent, oral cavity and pharynx normal. Voice is within normal limits Exam or the heart reveals regular rate and rhythm without audible murmurs The lungs are clear to auscultation bilaterally. The abdomen is non- tender and non-distended. Exam of the anterior cervical surgical wound reveals that it is clean, dry, and intact; without signs of infection, inflammation, and/or hematoma. There is minimum surgical drain output confirmed by Dr. Darrell Strickland M.D. ordering removal of drain. Gross exam of the extremities reveals strength & sensation are grossly intact within the patient's normal baseline limits except mild diminished sensation in right thumb & index fingers. The patient was eventually able to get out of bed and ambulate within acceptable limits. Therapy services made recommendations for disposition. Flatus was appreciated and the patient was able to void without significant difficulty. The pain was gradually under control. The patient was afebrile on discharge. The patient's incision(s) was clean, dry and intact. The dressing was changed to the Surgeon's specifications. The output from the wound drain was minimum surgical drain output at discharge and therefore the drain was removed. The patient progressed well with rehabilitation and was subsequently discharged to home in stable condition. The patient verbally affirmed understanding when given clear instruction regarding the postoperative care and follow-up including but not limited to seeking immediate medical attention for chest pain, shortness of breath, oversedation, a temperature greater than 101.5 F, severe uncontrolled pain or weakness, loss of bowel or bladder function, choking, lots or drainage, pus discharge or constipation. All questions were answered. Disposition: Home in stable condition. Follow-up Plan: Follow-up with physician digital assistant in outpatient neurosurgical clinic in 1 week for wound check. Acetaminophen (Acetaminophen) 500 Mg Tablet 500-1,000 MG PO Q6H PRN PRN For Fever (Reported) Acetaminophen/Codeine 300-30mg (Tylenol/Codeine #3) 1 Each Tablet 1-2 TABLET PO Q4H PRN PRN Pain (Reported) Cholecalciferol (Vitamin D3) (Vitamin D) 1,000 Unit Capsule 2,000 UNIT PO DAILY (Reported) Docusate Sodium (Docusate Sodium) 250 Mg Capsule 250 MG PO BID PRN PRN For Constipation (Reported) Fluoxetine (Fluoxetine) 60 Mg Tablet 60 MG PO DAILY (Reported) Hydroxyzine Pamoate (Vistaril) 25 Mg Capsule 25-50 MG PO Q4H PRN PRN For Itching (Reported) Lisinopril (Lisinopril) 2.5 Mg Tablet 2.5 MG PO DAILY (Reported) Lovastatin (Lovastatin) 40 Mg Tablet 80 MG PO HS (Reported) Lysine (Lysine) 1,000 Mg Tablet 1,000 MG PO DAILY (Reported) Metformin (Metformin) 500 Mg Tablet 500 MG PO BID (Reported) Multivitamin (Multi Vitamin Daily) 1 Each Tablet 1 EACH PO DAILY (Reported) Discharge Medications: Prescribed during the patient's preoperative appointment with specific instructions to avoid oversedation & falls. Additional Information The patient verbalized confirmation with Neurosurgery that she would have adequately supervised postoperative care at home. Attending Statement: All documentation regarding & orders authorized by Dr. Darrell Strickland M.D. copies to: Luh Olivares MD, Scott PA-C Jun 04, 2016 13:02
--- NOTE | 2016-06-04 14:14 | NUR ---
Social Work: Initial Assessment / D/C Data: Pt is a 76 y/o female admitted for cervical spondylosis with myelopahy. Pt's PCP is Dr Olivares, pt's insurance is [employer]. EMR reviewed. D/C orders are in. [employer] PRO[employer] MANAGER met with pt at bedside, role explained. Pt states that she lives alone in a 2 story home where she uses no DME. Pt drives, has no hx of HH, stayed at [facility] after a hip replacement, has no LTC or VA benefits, and is not a caregiver. Pt states a friend is coming to drive her home. Pt reports no AD/DPOA and declined information from [employer] MANAGER. No further d/c planning needs at this time. [employer] PROJECT MANAGER will continue to follow if needs arise. Assessment: Pt who is independent at baseline. Plan: Pt will d/c home via POV with friend today. No further d/c planning needs at this time. [employer] PRO[employer] MANAGER will continue to follow if needs arise. SERA Graham Addendum: 06/04/16 at 1446 by ANASTASIA HARVEY Amended: Links added.
--- NOTE | 2016-06-04 15:42 | NUR ---
Discharge note- Patient sitting up in chair. Oral pain meds effective for incisional pain. BERNA drain dc'd and clean dressing applied to neck per ordered protocol. Neck collar in place. Instructed patient how to changed dressing over BERNA site as needed. Discharged to home with friend and personal belongings.
== END 2016-06-04 14:15 | disposition home or self-care (01) | DRG 473 ==
LOC: SAS 05:40 → OSC 14:56
PROVIDERS: ADMIT Neurological Surgery; ATTEND Neurological Surgery
PROC: 0RG20K0 Fusion of 2 or more Cervical Vertebral Joints with Nonautologous Tissue Substitute, Anterior Approach, Anterior Column, Open Approach (ICD-10-PCS; 2016-06-03)
PROC: 0RT30ZZ Resection of Cervical Vertebral Disc, Open Approach (ICD-10-PCS; principal; 2016-06-03 07:30)
DX: M47.12 Other spondylosis with myelopathy, cervical region (principal); M47.22 Other spondylosis with radiculopathy, cervical region; E11.9 Type 2 diabetes mellitus without complications; F32.9 Major depressive disorder, single episode, unspecified; F41.9 Anxiety disorder, unspecified; I10 Essential (primary) hypertension; Z87.891 Personal history of nicotine dependence